=== PATIENT | female | born 1975 | race Caucasian/White ===

== ENCOUNTER 2020-11-30 22:17 | Emergency (ER) | payer OTHER ==
[2020-11-30 23:41] VITALS: BP 137/98; PULSE 95
--- NOTE | 2020-11-30 23:41 | EDM.PDOC ---
ED HPI GENERAL MEDICAL PROBLEM - General Chief Complaint: General Stated Complaint: SHARP PAIN WHEN BREATHING Time Seen by Provider: 11/30/20 22:30 Source of Information: Reports: Patient History Limitations: Reports: No Limitations - History of Present Illness INITIAL COMMENTS - FREE TEXT/NARRATIVE: Patient presented to the ED because of pain over the anterior chest-midline rd aiting to the mid upper back. It was sharp, 7/10, worse with cough and movements, took ibuprofen 400 mg and now it's completely gone. There is no dyspnea, nausea or vomiting. Treatments [employer] CH[employer]ST[employer]: Reports: NSAIDS Chest Pain Score (Numeric/FACES): 2 - Related Data Allergies Allergy/AdvReac Type Severity Reaction Status Date / Time No Known Allergies Allergy Verified 11/30/20 22:43 Home Meds: Home Meds Levonorgestrel/Ethin.estradiol [Falmina-28 Tablet] 1 tab PO DAILY 11/30/20 [History] Omeprazole 20 mg PO DAILY 11/30/20 [History] Past Medical History - Past Health History Medical/Surgical History: Denies Medical/Surgical History Cardiovascular History: Reports: Hypertension Gastrointestinal History: Reports: GERD Musculoskeletal History: Reports: Other (See Below) Other Musculoskeletal History: muscular pains to hip Neurological History: Reports: Migraines Psychiatric History: Reports: Eating Disorders Endocrine/Metabolic History: Reports: Obesity/BMI 30+ - Past Surgical History Female Surgical History: Reports: Breast Reduction Social & Family History - Family History Cardiac: Reports: [place] - Tobacco Use Tobacco Use Status *Q: Never Tobacco User - Caffeine Use Caffeine Use: Reports: Coffee, Soda - Recreational Drug Use Recreational Drug Use: No ED ROS GENERAL - Review of Systems Review Of Systems: See Below Constitutional: Reports: No Symptoms HEENT: Reports: No Symptoms Respiratory: Reports: No Symptoms Cardiovascular: Reports: Chest Pain Endocrine: Reports: No Symptoms GI/Abdominal: Reports: No Symptoms : Reports: No Symptoms Musculoskeletal: Reports: Back Pain Skin: Reports: No Symptoms Neurological: Reports: No Symptoms Psychiatric: Reports: No Symptoms ED EXAM, GENERAL - Physical Exam Exam: See Below Exam Limited By: No Limitations General Appearance: Alert, No Apparent Distress Eye Exam: Bilateral Eye: PERRL Ears: Normal External Exam, Normal Canal Nose: Normal Inspection, Normal Mucosa, No Blood Throat/Mouth: Normal Inspection, Normal Lips, Normal Teeth Head: Atraumatic, Normocephalic Neck: Normal Inspection, Supple, Non-Tender, Full Range of Motion Respiratory/Chest: No Respiratory Distress, Lungs Clear, Normal Breath Sounds, No Accessory Muscle Use, Chest Non-Tender Cardiovascular: Normal Peripheral Pulses, Regular Rate, Rhythm, No Edema, No JVD, No Murmur, No Rub GI/Abdominal: Normal Bowel Sounds, Soft, Non-Tender, No Organomegaly Back Exam: Normal Inspection, Full Range of Motion Extremities: Normal Inspection, Normal Range of Motion, Non-Tender, No Pedal Edema, Normal Capillary Refill Neurological: Alert, Oriented, CN II-XII Intact, Normal Cognition, Normal Gait, Normal Reflexes, No Motor/Sensory Deficits Psychiatric: Normal Affect, Normal Mood Skin Exam: Warm, Dry, Intact #1 Interpretation EKG Date: 11/30/20 Time: 22:58 Rhythm: NSR Rate (Beats/Min): 78 [place]: Normal P-Wave: Present QRS: Normal ST-T: Normal QT: Normal Comparison: NA - No Prior EKG (NSR) Course - Vital Signs Text/Narrative:: Lab/EKG result was discussed with patient Last Recorded V/S: Last Vital Signs Temp 36.4 C 11/30/20 22:23 Pulse 86 11/30/20 22:23 Resp 16 11/30/20 22:23 BP 152/96 H 11/30/20 22:23 Pulse Ox 99 11/30/20 22:23 - Orders/Labs/Meds Orders: Active Orders 24 hr Category Date Time Status EKG Documentation Completion [RC] ASDIRECTED Care 11/30/20 22:53 Active BASIC METABOLIC PANEL,BMP [CHEM] Stat Lab 11/30/20 23:10 Received D-DIMER QUANTITATIVE [COAG] Stat Lab 11/30/20 23:10 Received EKG 12 Lead [EK] Routine Ther 11/30/20 22:51 Ordered Labs: Laboratory Tests 11/30/20 11/30/20 Range/Units 23:10 23:10 WBC 8.4 (3.0-10.3) x10-3/uL RBC 4.58 (3.60-5.20) x10(6)uL Hgb 13.8 (11.4-15.5) g/dL Hct 40.0 (34.2-48.2) % MCV 87.2 (76.7-100.5) fL MCH 30.0 (23.9-33.9) pg MCHC 34.4 (31.9-34.8) g/dL RDW 13.0 (12.3-16.5) % Plt Count 295 (151-488) x10(3)uL MPV 8.3 (7.1-12.4) fL Neut % (Auto) 42.3 (30.8-76.2) % Lymph % (Auto) 46.4 (18.4-52.1) % Thayer % (Auto) 8.8 (4.4-15.7) % Eos % (Auto) 1.8 (0.6-8.1) % Baso % (Auto) 0.7 (0.2-1.5) % Neut # (Auto) 3.5 (1.5-6.3) x10-3/uL Lymph # (Auto) 3.9 (1.0-4.4) x10-3/uL Thayer # (Auto) 0.7 (0.3-1.0) x10-3/uL Eos # (Auto) 0.2 (0.0-0.8) x10-3/uL Baso # (Auto) 0.1 (0.0-0.1) x10-3/uL Magnesium 2.0 (1.8-2.5) mg/dL Departure - Departure Time of Disposition: 11:55 Disposition: Home, Self-Care 01 Condition: Good Clinical Impression: Musculoskeletal pain - Discharge Information Instructions: Musculoskeletal Pain Referrals: Deanna Ely PA [Primary Care Provider] - Additional Instructions: Please read discharge instructions on musculoskeletal pain Increase oral fluids Continue magnesium Take ibuprofen 800 mg tylenol 1000 mg every 8 hours as needed for pain Follow up as needed Sepsis Event Note (ED) - Evaluation Sepsis Screening Result: No Definite Risk - Focused Exam Vital Signs: Vital Signs Temp Pulse Resp BP Pulse Ox 11/30/20 22:23 36.4 C 86 16 152/96 H 99 - My Orders Last 24 Hours: My Active Orders 11/30/20 22:51 EKG 12 Lead [EK] Routine 11/30/20 22:53 EKG Documentation Completion [RC] ASDIRECTED 11/30/20 23:10 BASIC METABOLIC PANEL,BMP [CHEM] Stat D-DIMER QUANTITATIVE [COAG] Stat - Assessment/Plan Last 24 Hours: My Active Orders 11/30/20 22:51 EKG 12 Lead [EK] Routine 11/30/20 22:53 EKG Documentation Completion [RC] ASDIRECTED 11/30/20 23:10 BASIC METABOLIC PANEL,BMP [CHEM] Stat D-DIMER QUANTITATIVE [COAG] Stat
== END 2020-11-30 23:52 | disposition home or self-care (01) ==
LOC: FB.ED 22:17
DX: R07.89 Other chest pain (principal); I10 Essential (primary) hypertension; K21.9 Gastro-esophageal reflux disease without esophagitis; E66.9 Obesity, unspecified; Z68.34 Body mass index [BMI] 34.0-34.9, adult; Z79.899 Other long term (current) drug therapy
CPT/HCPCS: 36415; 80048; 83735; 85025; 85379; 93005; 99285-25